=== PATIENT | male | born 1935 | race Caucasian/White ===

== ENCOUNTER 2024-07-10 09:44 | Emergency (ER) | payer MEDICARE, OTHER, SELFPAY ==
[2024-07-10 09:51] VITALS: BP 135/75
--- NOTE | 2024-07-10 11:25 | ED.GENMED ---
History of Present Illness
General
Chief Complaint: Change in Mental Status
Time Seen by Provider: 07/10/24 11:29
History of Present Illness
History of Present Illness:
89 yo male with history of dementia presenting for concern of change in mental status.� Patient arrives from nursing facility where he was noted to not want to eat lunch.� Patient was sent to the emergency department for concern of mental status
change.� On arrival patient is very limited historian.� Does note that he feels confused.� He denies any present medical complaints chest pain, difficulty breathing, abdominal pain, weakness.� No report of any recent fall or trauma.� No additional
history obtained at this time.
Phy Exam
Physical Exam
Physical Exam:
General: Well-appearing, no clinical signs of dehydration, nontoxic and in no acute distress
HEENT: protecting airway
Neck: appears supple
CV: Normal heart rate, regular rhythm
Resp: No accessory muscle use, no increased work of breathing, lungs clear to auscultation bilaterally
Abd: Soft and non-distended, no tenderness to palpation
Extremities: No deformities, no swelling, no erythema, pulses and sensation intact
Neuro: alert, disoriented to time
: deferred
Rectal: deferred
Psych: Normal affect
Skin: Intact
Course
Orders/Labs/Results
Orders:
Orders
07/10/24 11:49
CT Head W/o Iv Contrast Urgent
Comment:
Reason For Exam: confusion
07/10/24 13:10
Complete Blood Count/With Diff Urgent
Comprehensive Metabolic Panel Urgent
Urinalysis Reflex To Culture Urgent
Date Specimen was Collected: 07/10/24
Time Specimen was Collected: 12:35
Abnormal Lab Results
07/10/24
13:10
RBC 3.46 L 10^6/uL
(4.70-6.10)
Hgb 11.6 L g/dL
(13.0-18.0)
Hct 34.6 L %
(39.0-52.0)
MCV 100.0 H fL
(80.0-94.0)
MCH 33.5 H pg
(27.0-31.0)
RDW 18.9 H %
(11.5-14.5)
Absolute Lymphs (auto) 1.0 L 10^3/uL
(1.2-3.4)
Lymphocytes % 16.0 L %
(20.5-51.1)
Carbon Dioxide 32 H mmol/L
(22-30)
BUN 31 H mg/dl
(9-20)
Total Protein 6.0 L g/dl
(6.3-8.2)
07/10/24 13:10
07/10/24 13:10
Vital Signs
Initial and Last Documented VS:
Initial Vital Signs
Temp Pulse Resp BP Pulse Ox
97.5 F 75 16 135/75 100
07/10/24 09:51 07/10/24 09:51 07/10/24 09:51 07/10/24 09:51 07/10/24 09:51
Last Documented Vital Signs
Temp Pulse Resp BP Pulse Ox
97.5 F 71 16 135/77 93
07/10/24 09:51 07/10/24 14:15 07/10/24 09:51 07/10/24 14:15 07/10/24 16:03
MDM/Problems Addressed
MDM/Problems Addressed:
89 yo male with history of dementia presenting for concern of change in mental status.� Vital signs are normal.
On exam patient is resting comfortably, no acute distress.� Denies any acute medical complaints.� He is afebrile, nontoxic.� Patient is disoriented, however no focal neurologic deficits without present concern for acute central neurologic process.�
Suspect that his symptoms could be secondary to known dementia.� Given limited historian, will obtain laboratory analysis, CT head imaging, urinalysis and continue to monitor.
14:00 -CT negative. Urine without any sign of infection.� Labs unremarkable. Feel stable for discharge.� Continue to suspect symptoms�from dementia.��Remains hemodynamically stable.��Return precautions discussed.
*Critical Care Note
Total Time (30-74mins, 75-104mins- exclusive of procedures): Not Applicable
ED Attending Note
-
Portions of this chart may have been created with voice recognition software.� Occasional wrong word or��sound alike� substitutions may have occurred due to the inherent limitations of voice recognition software.
Discharge Plan
Departure
Patient Disposition: Home (Routine Discharge)
Patient with high blood pressure during this ER visit?: No
Condition: Good
Discharge Problem:
Behavioral change
Instructions: Dementia (DC)
Prescriptions:
No Action
metoprolol succinate 50 MG tablet extended release 24 hr
50 mg PO DAILY
aspirin 81 MG tablet,chewable
81 mg PO DAILY
fiber 1 EACH tablet
1 ea PO DAILY
hydrochlorothiazide 25 MG tablet
25 mg PO DAILY
fluticasone propionate 1 SPRAY spray,suspension
1 spray intranasal PRN PRN (Reason: allergy)
valsartan [Diovan] 160 MG tablet
160 mg PO DAILY
rosuvastatin [Crestor] 20 MG tablet
20 mg PO DAILY
[id number] [Centrum Silver Ultra Men's] 1 EACH tablet
1 ea PO DAILY
Monisolide
25 % PO DAILY
Patient Comments:
not aware of drug spoke with pharmacy aslo unaware of drug pt states gets medications from [facility] and will bring in the correct spelling next time in hospital setting
Referrals:
Jadon Duvall I., DO [Family Provider, Internal Medicine]
Interventions
Interventions:
*Risk Screen - Suicide Last Done: 07/10/24 09:52
*General Assessment Last Done: 07/10/24 11:00
*Neglect/Abuse Screening Last Done: 07/10/24 09:52
*ED- Fall Risk Assessment Last Done: 07/10/24 11:00
*ED COVID-19 Vaccine History Last Done: 07/10/24 11:00
*Nursing Disposition Last Done: 07/10/24 16:01
ED- Pulmonary Assessment Last Done: 07/10/24 16:03
ED-Psychological Assessment Last Done: 07/10/24 16:03
ED- Neurological Assessment Last Done: 07/10/24 15:59
Discharge Date and Time
Discharge Date/Time: 07/10/24 14:15
Print Language: [place]
[2024-07-10 13:36] LABS: Urine Albumin Negative (Neg - Trace); Urine Bilirubin Negative (Negative); Urine Character Slightly Cloudy (Clear); Urine Color Yellow; Urine Glucose Negative (Negative); Urine Ketone Negative (Negative); Urine Leukocyte Negative (Negative); Urine Nitrite Negative (Negative); Urine Occult Blood Negative (Negative); Urine Urobilinogen Negative (Neg - 1+)
[2024-07-10 14:15] VITALS: BP 135/77
--- NOTE | 2024-07-10 15:59 | DOWNTIME ---
There was a [facility] Downtime on 07/10/2024 from 1230 to 07/10/2024 at 1550. Downtime documentation of patient's care, including medication administrations, has been reconciled in the electronic record per guidelines. Refer to the
patient's paper chart under the miscellaneous tab to see printed paper medication records and downtime forms.
[2024-07-10 17:46] LABS: % Basophils 0.5 % (0-2); % Eosinophils 1.4 % (0-6); % Immature Granulocytes 0.3 % (0-0.5); % Monocytes 8.5 % (1.7-9.3); % Neutrophils 73.3 % (42.2-75.2); Absolute Eosinophils 0.1 10^3/uL (0-0.7); Absolute Monocytes 0.5 10^3/uL (0.1-0.6); Absolute Neutrophils 4.6 10^3/uL (1.4-6.5); Hematocrit 34.6 % (39.0-52.0); Hemoglobin 11.6 g/dL (13.0-18.0); Mean Corp Hgb Conc. 33.5 g/dL (33.0-37.0); Mean Corpuscular Hgb 33.5 pg (27.0-31.0); Mean Platelet Volume 10.4 fL (7.4-10.4); Nucleated Red Blood Cells % 0 % (-); Platelet Count 161 10^3/uL (130-400); Red Blood Cell Count 3.46 10^6/uL (4.70-6.10); Red Cell Dist. Width 18.9 % (11.5-14.5); White Blood Cell Count 6.3 10^3/uL (4.8-10.8)
[2024-07-10 17:51] LABS: ALT (SGPT) 15 U/L (0-50); AST (SGOT) 22 U/L (17-59); Albumin 3.5 g/dl (3.5-5.0); Alkaline Phosphatase 65 U/L (38-126); Blood Urea Nitrogen 31 mg/dl (9-20); Calcium 8.8 mg/dl (8.4-10.2); Carbon Dioxide 32 mmol/L (22-30); Chloride 106 mmol/L (98-107); Glucose 83 mg/dl (70-99); Potassium 3.7 mmol/L (3.5-5.1); Sodium 141 mmol/L (135-145); Total Bilirubin 0.8 mg/dl (0.2-1.3); eGFR > 60.00
== END 2024-07-10 14:15 ==
LOC: EMR 09:44
PROVIDERS: EMERGENCY PHYSICIAN Student in an Organized Health Care Education/Training Program; FAMILY PHYSICIAN Internal Medicine
DX: F03.918 Unspecified dementia, unspecified severity, with other behavioral disturbance (principal)
CPT/HCPCS: 70450; 80053; 81003; 85025; 99284